=== PATIENT | female | born 1935 | race Caucasian/White ===

== ENCOUNTER → 2016-08-26 | Outpatient (CLI) | payer MEDICARE, OTHER ==
--- NOTE | 2016-08-27 09:35 | DI ---
Indication: ITS.REASON: R10.11 RUQ ABD PAIN; PROCEDURE: KUB: Encounter: Initial Comparison: None Findings: Nonobstructive nonspecific bowel gas pattern. Large amount of stool in the colon. Multiple pelvic phleboliths. Degenerative change and scoliosis in the spine. Impression: No acute findings. .
--- NOTE | 2016-08-27 09:37 | DI ---
Indication: ITS.REASON: M25.551 PAIN IN RIGHT HIP PROCEDURE: HIP RIGHT 2 VIEW: Encounter: Initial Comparison: August 20, 2010 Findings: There is no acute fracture, dislocation or malalignment identified. Impression: No acute osseous abnormality. .
== END ==
LOC: IMA 17:08
PROVIDERS: ATTEND Family Medicine
DX: R10.11 Right upper quadrant pain (principal); M25.551 Pain in right hip